=== PATIENT | male | born 1960 | race Caucasian/White ===

== ENCOUNTER 2016-10-17 20:49 | Emergency (ER) | payer OTHER ==
[2016-10-17 23:28] LABS: CALCIUM 8.4 mg/dL (8.5-10.1); CARBON DIOXIDE 27.1 mmol/L (21-32); CHLORIDE SERUM 104 mmol/L (98-107); CREATININE SERUM 0.8 mg/dL (0.7-1.3); GFR1 > 60 mL/min; GLUCOSE SERUM 101 mg/dL (74-106); SODIUM SERUM 143 mmol/L (136-145)
[2016-10-17 23:32] LABS: ALBUMIN 3.4 g/dL (3.4-5.0); ALKALINE PHOSPHATASE 63 U/L (46-116); ALT/SGPT 36 U/L (16-63); AST/SGOT 30 U/L (15-37); BILIRUBIN TOTAL 0.26 mg/dL (0.20-1.00); TOTAL PROTEIN, SERUM 7.2 g/dL (6.4-8.2)
[2016-10-18 00:58] VITALS: BP 138/75
== END 2016-10-18 00:58 | disposition home or self-care (01) ==
LOC: ED 20:49
PROVIDERS: Emergency Medicine
DX: M50.33 Other cervical disc degeneration, cervicothoracic region (principal); M54.16 Radiculopathy, lumbar region
CPT/HCPCS: 36415; J1885

== ENCOUNTER 2017-04-05 09:57 | Emergency (ER) | payer OTHER ==
[~2017-04-05] VITALS: Ht 177.8 cm; Wt 86.9 kg
[2017-04-05 10:06] VITALS: Ht 177.8 cm; Wt 86.9 kg
[2017-04-05 12:16] VITALS: BP 144/64
== END 2017-04-05 12:16 | disposition home or self-care (01) ==
LOC: ED 09:57
DX: S83.8X1A Sprain of other specified parts of right knee, initial encounter (principal); M19.90 Unspecified osteoarthritis, unspecified site; X58.XXXA Exposure to other specified factors, initial encounter; Y93.89 Activity, other specified; Y92.89 Other specified places as the place of occurrence of the external cause; Y99.8 Other external cause status
CPT/HCPCS: Q0092

== ENCOUNTER 2017-04-14 13:50 | Emergency (ER) | payer OTHER ==
[2017-04-14 16:18] VITALS: BP 143/81
== END 2017-04-14 16:18 | disposition home or self-care (01) ==
LOC: ED 13:50
DX: G89.29 Other chronic pain (principal); M25.561 Pain in right knee

== ENCOUNTER 2017-06-25 22:07 | Emergency (ER) | payer OTHER ==
[2017-06-26 01:03] VITALS: BP 165/89
== END 2017-06-26 01:03 | disposition home or self-care (01) ==
LOC: ED 22:07
DX: S80.211A Abrasion, right knee, initial encounter (principal); W22.8XXA Striking against or struck by other objects, initial encounter; Y93.89 Activity, other specified; Y92.89 Other specified places as the place of occurrence of the external cause; Y99.8 Other external cause status
CPT/HCPCS: Q0092

== ENCOUNTER 2019-10-11 01:52 | Emergency (ER) | payer OTHER ==
[~2019-10-11] VITALS: Ht 177.8 cm; Wt 98.9 kg
[2019-10-11 02:01] VITALS: Ht 177.8 cm; Wt 98.9 kg
[2019-10-11 03:03] VITALS: BP 149/90
== END 2019-10-11 03:02 | disposition home or self-care (01) ==
LOC: ED 01:52
DX: M54.42 Lumbago with sciatica, left side (principal); M54.41 Lumbago with sciatica, right side; M19.90 Unspecified osteoarthritis, unspecified site; Z98.890 Other specified postprocedural states; X50.0XXA Overexertion from strenuous movement or load, initial encounter; Y93.89 Activity, other specified; Y92.89 Other specified places as the place of occurrence of the external cause; Y99.8 Other external cause status
CPT/HCPCS: J1885